=== PATIENT | female | born 1970 | race Caucasian/White ===

== ENCOUNTER 2021-05-19 11:10 | Outpatient (CLI) | payer BC, SELFPAY ==
--- NOTE | 2021-05-19 11:18 | MM_ITS ---
WS: [id number] SCREENING 3D TOMOSYNTHESIS DIGITAL MAMMOGRAM WITH CAD HISTORY: SCREENING COMPARISON: 07/08/2015 Bilateral CC and MLO views submitted. Computer aided detection analyzed. Breast composition: The breasts are heterogeneously dense, which may obscure small masses. There is a new 5 mm nodule which is likely loculated involving the mid lateral RIGHT breast. On the CC projecti on this is not definitely identified. There is an additional ovoid nodule measuring [address] able since 2016. No abnormality in the LEFT breast. MM/[place] [id number] IMPRESSION: BI-RADS: 0-Incomplete: Need additional imaging evaluation FOLLOW UP: Need Additional Imaging RIGHT breast: Spot compression views (CC and MLO). True ML. Ultrasound to follo w if abnormality persists.
== END 2021-05-19 11:11 | disposition home or self-care (01) ==
LOC: RAD 11:12
PROVIDERS: PCP Family Medicine; Visit Provider Nurse Practitioner Women's Health
DX: Z12.31 Encounter for screening mammogram for malignant neoplasm of breast (principal)
CPT/HCPCS: 77063; 77067

== ENCOUNTER 2021-06-10 10:45 | Outpatient (CLI) | payer BC, SELFPAY ==
--- NOTE | 2021-06-10 10:53 | MM_ITS ---
WS: [id number] ADDITIONAL VIEWS RIGHT MAMMOGRAM RIGHT BREAST ULTRASOUND HISTORY: New nodule central to the RIGHT nipple in the lateral breast. COMPARISON: 05/19/2021, 07/08/2015 RIGHT MAMMOGRAM: Spot compression views and true ML. The asymmetry persists central to the nipple seen best on the lateral projection measuring about 5 mm . This asymmetry is slightly lobulated and probably in the lateral breast. RIGHT BREAST ULTRASOUND 2-D and color Doppler imaging submitted. The small 5 mm asymmetry seen within the central RIGHT breast on the mammogram is not apparent by ult rasound. MM/[place] [id number] IMPRESSION: BI-RADS: 3-Probably Benign FOLLOW UP: 6 Month Follow-up Recommend diagnostic RIGHT mammogram and possible ultrasound follow-up in 6 mon ths.
== END 2021-06-10 10:46 | disposition home or self-care (01) ==
PROVIDERS: PCP Family Medicine; Visit Provider Nurse Practitioner Women's Health
DX: R92.8 Other abnormal and inconclusive findings on diagnostic imaging of breast (principal); N64.89 Other specified disorders of breast
CPT/HCPCS: 76642; 77061

== ENCOUNTER 2021-12-16 08:28 | Outpatient (CLI) | payer BC, SELFPAY ==
--- NOTE | 2021-12-16 08:35 | MM_ITS ---
WS: [email or web address] RIGHT DIGITAL TOMOSYNTHESIS MAMMOGRAPHY WITH CAD. HISTORY: R92.8 - Other abnormal and inconclusive findings on prior mammogram. 6 month follow-up. COMPARISON: 05/19/2021 and 2015 Technique: CC, MLO and ML views. Spot compression RIGHT CC and MLO. Breast composition: The breasts are heterogeneously dense, which may obscure small masses. Previous the described asymmetry central to the nipple is very poorly visualized today. May have resolved comp letely. There is an additional ovoid nodule in the superior breast which is been present on multiple prior studies. As this nodule central to the nipple was not visualized well by ultrasound no ultrasou nd will be performed today. MM/[place] [id number] IMPRESSION: BI-RADS: 3-Probably Benign FOLLOW UP: 6 Month Follow-up Patient to return in 6 months for annual mammogram which should be performed in May 2022. The previously described asymmetry central to the RIGHT nipple is not well visualized today and is less apparent and may have resolved.
== END 2021-12-16 08:29 | disposition home or self-care (01) ==
PROVIDERS: PCP Family Medicine; Visit Provider Obstetrics & Gynecology
DX: R92.8 Other abnormal and inconclusive findings on diagnostic imaging of breast (principal)
CPT/HCPCS: 77061; G0279

== ENCOUNTER → 2021-12-22 10:39 | Outpatient (BNVA) | payer BC, SELFPAY | PROVIDERS: PCP Family Medicine; Visit Provider Nurse Practitioner Women's Health | DX: Z12.4 Encounter for screening for malignant neoplasm of cervix (principal); N95.1 Menopausal and female climacteric states; L90.0 Lichen sclerosus et atrophicus; Z01.419 Encounter for gynecological examination (general) (routine) without abnormal findings | CPT/HCPCS: 87624 ==

== ENCOUNTER 2022-08-02 08:47 | Outpatient (CLI) | payer BC, SELFPAY ==
--- NOTE | 2022-08-02 09:00 | MM_ITS ---
WS: [email or web address] VIEWS: MLO and CC views both breasts. 3D digital tomosynthesis is also included in this exam. Comparison made with prior exam of .. 07/08/2015. 05/19/2021, 12/16/2021.. Findings: There was no sign of mass, architectural distortion or suspicious calcification in either breast. Sta ble appearing nodular densities in both breasts.The breasts are heterogeneously dense which may obscu re small masses MM/[place] [id number] Impression: BI-RADS: 2-Benign finding. FOLLOW-UP: 1 Year Follow-up This mammogram was also analyzed by the Computer Aided Detection System R2 [employer].
== END 2022-08-02 08:48 | disposition home or self-care (01) ==
PROVIDERS: PCP Family Medicine; Visit Provider Nurse Practitioner Women's Health
DX: Z12.39 Encounter for other screening for malignant neoplasm of breast (principal)
CPT/HCPCS: 77063; 77067

== ENCOUNTER 2023-12-11 09:13 | Outpatient (CLI) | payer BC, SELFPAY ==
--- NOTE | 2023-12-11 09:16 | MM_ITS ---
WS: [email or web address] BILATERAL 3D TOMOSYNTHESIS DIGITAL SCREENING MAMMOGRAPHY WITH CAD CLINICAL INFORMATION: SCREENING HISTORY: Screening mammogram. No current complaints. COMPARISON: 2022 TECHNIQUE: Bilateral CC and MLO views. FINDINGS: Scattered fibroglandular densities bilaterally. No suspicious focal mass, asymmetry, calcifications, or architectural distortion. No evidence of malignancy. A few incidental punctate calcifications MM/MM scr tomosynthesis [id number] IMPRESSION: DENSITY: There are scattered areas of fibroglandular density. BI-RADS: 2 - Benign. FOLLOW UP: 1 Year Follow-up Recommend return to annual screening mammography.
== END 2023-12-11 09:14 | disposition home or self-care (01) ==
LOC: RAD 09:15
PROVIDERS: PCP Family Medicine; Visit Provider Nurse Practitioner Women's Health
DX: Z12.31 Encounter for screening mammogram for malignant neoplasm of breast (principal); R92.323 Mammographic fibroglandular density, bilateral breasts
CPT/HCPCS: 77063; 77067

== ENCOUNTER → 2024-03-11 07:57 | Outpatient (BNVA) | payer BC, SELFPAY | PROVIDERS: PCP Family Medicine; Visit Provider Nurse Practitioner Women's Health | DX: N95.0 Postmenopausal bleeding (principal) | CPT/HCPCS: 76830 ==

== ENCOUNTER 2025-01-09 10:00 | Outpatient (CLI) | payer BC, SELFPAY ==
--- NOTE | 2025-01-09 | MM_ITS ---
WS: [id number] BILATERAL SCREENING DIGITAL TOMOSYNTHESIS MAMMOGRAM WITH CAD HISTORY: ANNUAL SCREENING COMPARISON: 12/11/2023, 08/02/2022, 05/19/2021 and 07/08/2015 Bilateral CC and MLO views with tomosynthesis and synthetic mammography submitted. Computer aided detection analyzed. Breast composition: The breasts are heterogeneously dense, which may obscure small masses. No suspicious masses, microcalcifications or architectural distortion. No change in appearance of the breast over multiple prior years. The asymmetries are stable. MM/MM scr tomosynthesis [id number] IMPRESSION: BI-RADS: 2 - Benign FOLLOW UP: 1 Year Follow-up
== END 2025-01-09 10:01 | disposition home or self-care (01) ==
LOC: RAD 10:01
PROVIDERS: PCP Family Medicine; Visit Provider Family Medicine
DX: Z12.31 Encounter for screening mammogram for malignant neoplasm of breast (principal); R92.333 Mammographic heterogeneous density, bilateral breasts; N64.89 Other specified disorders of breast
CPT/HCPCS: 77063; 77067